=== PATIENT | male | born 1995 | race Two or more races ===

== ENCOUNTER 2024-09-17 20:16 | Emergency (ER) | payer OTHER ==
[2024-09-17] MEDS ORDERED: Albuterol 6.7 GM Inhaler INH ONE (20:17)
[2024-09-17] MEDS: Albuterol/Ipratropium 3.0-0.5 MG/3 ML Neb Soln NEB ONE ×2 (20:26→22:21)
[2024-09-17] MEDS: methylPREDNISolone Sodium Succinate 125 MG/2 ML SDV IM ONE (20:37)
[2024-09-17] MEDS: Ondansetron 4 MG Tab.DIS PO ONE (22:21)
== END 2024-09-17 23:47 | disposition home or self-care (01) ==
LOC: FB.ED 20:16
DX: J45.41 Moderate persistent asthma with (acute) exacerbation (principal); F17.210 Nicotine dependence, cigarettes, uncomplicated
CPT/HCPCS: 94640; 96372; 99284; A9270-GY; J2919; J7620; Q0162

== ENCOUNTER 2024-09-21 17:10 | Emergency (ER) | payer OTHER ==
[2024-09-21] MEDS ORDERED: Sodium Chloride 0.9% 10 ML Syringe FLUSH PRN (17:16)
[2024-09-21] MEDS: cefTRIAXone 1 GM Vial IM ONE (17:26)
[2024-09-21] MEDS: methylPREDNISolone Sodium Succinate 125 MG/2 ML SDV IM ONE (17:26)
[2024-09-21] MEDS: Albuterol/Ipratropium 3.0-0.5 MG/3 ML Neb Soln NEB ONE ×2 (17:30→19:54)
[2024-09-21] MEDS: Magnesium Sulfate/Water Premix 4 GM in Premix Bag 1 BAG IV ONE (18:07)
== END 2024-09-21 21:34 | disposition home or self-care (01) ==
LOC: FB.ED 17:10
DX: J45.40 Moderate persistent asthma, uncomplicated (principal); F17.210 Nicotine dependence, cigarettes, uncomplicated
CPT/HCPCS: 96365; 96366; 96372; 99284; 99284-25; J0696; J2919; J3475; J7620

== ENCOUNTER 2024-09-24 13:54 | Emergency (ER) | payer OTHER ==
[~2024-09-24 13:54] MED LIST: Sodium Chloride 0.9% 10 ML Syringe FLUSH PRN
[2024-09-24] MEDS: Albuterol/Ipratropium 3.0-0.5 MG/3 ML Neb Soln NEB ONE ×2 (13:54→15:17)
[2024-09-24] MEDS: methylPREDNISolone Sodium Succinate 125 MG/2 ML SDV IVPUSH ONE (14:04)
[2024-09-24] MEDS: Magnesium Sulfate/Water Premix 4 GM in Premix Bag 1 BAG IV ONE (14:06)
[2024-09-24 14:32] LABS: HEMATOCRIT 47.3 % (38.3-50.1); HEMOGLOBIN 15.6 g/dL (12.9-17.7); MEAN CORPUSCULAR HEMOGLOBIN 27.5 pg (27.0-33.3); MEAN CORPUSCULAR HGB CONC 32.9 g/dL (28.7-35.3); MEAN CORPUSCULAR VOLUME 83.5 fL (80.8-98.7); MEAN PLATELET VOLUME 8.4 fL (6.7-11.0); PLATELET COUNT,PLT 312 x10(3)uL (117-477); RED BLOOD CELL COUNT 5.66 x10(6)uL (3.90-5.90); RED CELL DISTRIBUTION WIDTH 15.1 % (12.4-15.0); WHITE BLOOD CELL COUNT,WBC 15.1 x10-3/uL (3.2-10.1)
[2024-09-24 14:36] LABS: BLOOD UREA NITROGEN,BUN 11 mg/dL (7-18); BUN/CREATININE RATIO 12.2 (9-20); CALCIUM 9.1 mg/dL (8.6-10.2); CARBON DIOXIDE,CO2 28 mmol/L (21-32); CHLORIDE,CL 105 mmol/L (100-110); CREATININE 0.9 mg/dL (0.70-1.30); ESTIMATED GFR 120 mL/min (>60); GLUCOSE RANDOM 91 mg/dL (80-116); POTASSIUM,K 4.1 mmol/L (3.5-5.3); SODIUM,NA 141 mmol/L (135-145)
[2024-09-24 14:43] LABS: BASE EXCESS VENOUS,POC -2 mmol/L (-2 - 3+); PCO2 VENOUS,POC 62 mmHg (41-51); PH VENOUS,POC 7.25 pH Units (7.32-7.43)
[2024-09-24 14:59] LABS: EOSINOPHILS PERCENT MAN 7 % (0-5); LYMPHOCYTES PERCENT MAN 23 % (13-37); MONOCYTES PERCENT MAN 6 % (4-12); SEG NEUTROPHILS PERCENT MAN 64 % (46-82)
[2024-09-24 15:02] LABS: INFLUENZA A NAA NEGATIVE (NEGATIVE); INFLUENZA B NAA NEGATIVE (NEGATIVE); RESPIRATORY SYNCYTIAL VIR NAA NEGATIVE (NEGATIVE)
[2024-09-24 15:04] LABS: CORONAVIRUS COVID-19 NAA NEGATIVE (NEGATIVE)
[2024-09-24] MEDS: Azithromycin 500 MG in Sodium Chloride 0.9% 250 ML IV ONE (16:02)
== END 2024-09-24 16:14 | disposition home or self-care (01) ==
LOC: FB.ED 13:54
DX: J45.901 Unspecified asthma with (acute) exacerbation (principal); Z79.899 Other long term (current) drug therapy
CPT/HCPCS: 0241U; 36415; 71045; 80048; 85025; 94640; 96365; 96366; 96375; 99284; 99285; J2919; J3475; J7620